=== PATIENT | male | born 1955 | race Caucasian/White ===

== ENCOUNTER 2020-01-29 18:20 | Observation (INO) ==
--- NOTE | 2020-01-29 19:05 | Emergency Department Note ---
Impression & Plan Right arm weakness, Hypomagnesemia, Hyperglycemia due to type 2 diabetes mellitus ED Provider Note Provider: Shorty Adams MD DATE OF SERVICE: 01/29/2020 CHIEF COMPLAINT: Right arm weakness HISTORY OF PRESENT ILLNESS: Patient is a 64-year-old gentleman history of A. fib and stroke presenting today stating around noon yesterday noted some issues with his right arm felt weak and is not moving quite as strong as the left. Denies any issues with his legs or speech. Denies headache. Denies trauma. Denies numbness in the upper extremities. States he did about 3 months ago have a prior stroke on the left side that was similar although that is improved. Patient states he is on Eliquis at this time given a history of atrial fibrillation. Patient eyes chest pain or fever infectious symptoms. Patient eyes any shortness of breath. Patient states he called his neurologist who is located in [place] and recommend he come in for imaging. Patient states he travels quite frequently and is just traveling through the area today. Denies visual changes. Denies speech issues again. REVIEW OF SYSTEMS: A total of 10 review of systems was obtained and negative except as stated above in the HPI. PAST MEDICAL HISTORY: As noted above and reports a history of colon cancer and kidney cancer in the past. MEDICATIONS: Reviewed the patient's medications that he is present with him that he takes at home SOCIAL HISTORY: Travels for work, has a boat in [place] which he considers his home, non-smoker PHYSICAL EXAM: GENERAL: alert and oriented in no acute distress on stretcher Head: normocephalic and atraumatic EYES: No injection, discharge or icterus. PERRL NECK: Trachea midline. Supple. ENT: Mucous membranes pink and moist. Pharynx without erythema or exudate. LUNGS: Airway patent. No retractions. Breath sounds clear with good air entry bilaterally. HEART: Regular rate and rhythm. No chest wall tenderness ABDOMEN: Soft and non-tender, without guarding or rebound. SKIN: Acyanotic, warm, dry, without rashes EXTREMITIES: Without swelling, tenderness or deformity NEUROLOGICAL: No focal deficits. No aphasia. No facial droop or slurred speech. Sensation to gross touch normal. Ambulatory. Patient does have some good bilateral hand sleep technologist strength. There is some slight very subtle slight ataxia of the right [id number]. EK bpm sinus bradycardia. No PVC. No ST segment elevation or depression. Normal QTC. No priors available. CONTINUOUS CARDIAC MONITORING: was ordered and showed a heart rate of 54 bpm in sinus bradycardia Patient's hypertension was referred to the hospitalist Patient's laboratory studies and imaging reviewed. Differential includes Infection, dehydration, metabolic abnormality, hypo/hyperglycemia, electrolyte disturbance, anemia, hypoxia, cardiac sources, intracerebral event, toxicologic, neurologic, as well as other pathologies. IMPRESSION/MEDICAL DECISION MAKING: Patient presents with neurological change management lead 24 hours ago stating his right arm seems weak. History of A. fib and stroke. States compliance home anticoagulation no trauma history. Patient is well-appearing. May be some subtle right arm weakness and ataxia appreciated. Imaging of the head was completed well CT of the head and neck. Basic labs were obtained. Patient outside the window for TPA and is anticoagulated contraindicated. On exam again he has very subtle symptoms at this point as well have a lower suspicion for LVO. Doubt this is acutely infectious. Laboratory studies with no sign of leukocytosis or anemia. Glucose is significant elevated in the 340s here. Patient does have a history of diabetes and is on metformin. I do so to qu estion his glycemic control given the significant hyperglycemia noted here. No significant electrolyte abnormality or signs of renal dysfunction beyond some mild hypomagnesemia. Troponin is undetectable I doubt this is cardiac in nature. Stable sinus bradycardia without evidence of atrial fibrillation. Denies any significant neck issue I doubt this was related to cervical spine issue. CT imaging likely without evidence of any cranial bleed or abnormality. CTA of the head and neck was completed without evidence of LVO/dissection per radiology. At this point cannot exclude an occult CVA however outside the interventional window or TPA range at this point. Discussed with the patient further evaluation with MRI and observation here in the hospital. Patient does not wish for this. Patient states blood sugars uncontrolled due to poor eating habits this morning. Discussed with patient reassuring findings this point but clearly a small stroke. Recommend observation overnight & he is in agreement with this. Given some magnesium supplementation here will defer further glycemic control to the inpatient team. Discussed with hospitalist. DIAGNOSIS: Right arm weakness, hypomagnesemia, hyperglycemia DISPOSITION: Hospitalist will evaluate Patient was agreeable with this plan. Past Med/Surg History Social History Smoking Status: Never smoker Feels Safe at Home: Yes Results & Data (ED) Vital Signs Vital Signs - 24 hr 01/29/20 18:43 01/29/20 19:14 Temperature 36.8 C 36.9 C Temperature Source Oral Oral Pulse Rate 60 Pulse Rate [Right Brachial] 55 L Pulse Rhythm [Right Brachial] Regular Respiratory Rate 18 18 Respiratory Effort / Characteristics Non-Labored Spontaneous Non-Labored Respiratory Depth Normal Normal Respiratory Pattern Regular Blood Pressure 165/87 H Blood Pressure [Right Arm] 172/86 H Blood Pressure Mean 113 Blood Pressure Mean [Right Arm] 114 Blood Pressure Position Sitting Pulse Oximetry 98 97 Oxygen Delivery Method Room Air Room Air Sepsis Recent Fever Within 48 Hours No Sepsis New/Unexplained Change in Mental Status N/A Sepsis Action Taken by Nursing No Action Required Laboratory Data Result diagrams: 01/29/20 19:13 01/29/20 19:13 Lab Results 01/29/20 01/29/20 01/29/20 Range/Units 19:13 19:13 19:13 WBC 5.70 (4.8-10.8) K/uL RBC 4.68 L (4.7-6.1) M/uL Hgb 14.4 (14.0-18.0) g/dL POC Hgb (14.0-18.0) g/dl Hct 40.8 L (42-52) % POC Hct (42-52) % MCV 87.2 (80-100) fL MCH 30.8 (25-34) pg MCHC 35.3 (32-36) g/dL RDW Std Deviation 40.8 (36.4-46.3) fL RDW Coeff of Fco 12.8 (11.5-14.5) % Plt Count 176 (130-400) K/uL MPV 9.7 (7.4-10.4) fL Immature Gran % (Auto) 0.2 % Neut % (Auto) 65.2 % Lymph % (Auto) 23.9 % Hayes % (Auto) 8.6 % Eos % (Auto) 1.9 % Baso % (Auto) 0.2 % Neut # (Auto) 3.72 (1.4-6.5) K/uL Lymph # (Auto) 1.36 (1.2-3.4) K/uL Hayes # (Auto) 0.49 (0.11-0.59) K/uL Eos # (Auto) 0.11 (0-0.5) K/uL Baso # (Auto) 0.01 (0-0.2) K/uL Immature Gran # (Auto) 0.01 (0.00-0.02) K/uL PT 11.1 (9.0-12.0) Seconds INR 1.1 (0.9-1.1) APTT 24.5 (21.0-31.0) Seconds PTT Ratio 0.9 POC Sodium (135-144) mmol/L Sodium 135 L (136-145) mmol/L POC Potassium (3.3-5.0) mmol/L Potassium 4.3 (3.5-5.1) mmol/L POC Chloride (101-112) mmol/L Chloride 101 (98-107) mmol/L Carbon Dioxide 28 (21-32) mmol/L POC Total CO2 (24-31) mmol/L Anion Gap 7.0 (3-11) POC Anion Gap (16-25) mmol/L POC BUN (7-18) mg/dl BUN 23 H (7-18) mg/dl Creatinine 1.06 (0.6-1.4) mg/dl POC Creatinine (0.6-1.3) mg/dl Est Cr Clr Drug Dosing 83.0 ml/min Est GFR ( Amer) 84.9 Est GFR (Non-Af Amer) 73.3 BUN/Creatinine Ratio 21.7 H (10-20) Glucose 340 H* (70-99) mg/dl POC Glucose (70-99) mg/dl POC Glucose (other) (70-99) mg/dl Lactate (0.4-2.0) mmol/L Calcium 8.9 (8.5-10.1) mg/dl POC Ioniz Calcium Mery (1.12-1.32) mmol/l Magnesium 1.5 L (1.8-2.4) mg/dl Total Bilirubin 0.9 (0.2-1) mg/dl AST 14 L (15-37) U/L ALT 20 (12-78) U/L Alkaline Phosphatase 95 (45-117) U/L Troponin I < 0.015 (0-0.045) ng/ml Total Protein 7.3 (6.4-8.2) gm/dl Albumin 3.7 (3.4-5.0) gm/dl Globulin 3.6 (2.5-4.0) gm/dl Albumin/Globulin Ratio 1.0 (0.9-2) Beta-Hydroxybutyric Acd (0.2-2.81) mg/dl 01/29/20 01/29/20 01/29/20 Range/Units 19:13 19:13 19:20 WBC (4.8-10.8) K/uL RBC (4.7-6.1) M/uL Hgb (14.0-18.0) g/dL POC Hgb 13.9 L (14.0-18.0) g/dl Hct (42-52) % POC Hct 41 L (42-52) % MCV (80-100) fL MCH (25-34) pg MCHC (32-36) g/dL RDW Std Deviation (36.4-46.3) fL RDW Coeff of Fco (11.5-14.5) % Plt Count (130-400) K/uL MPV (7.4-10.4) fL Immature Gran % (Auto) % Neut % (Auto) % Lymph % (Auto) % Hayes % (Auto) % Eos % (Auto) % Baso % (Auto) % Neut # (Auto) (1.4-6.5) K/uL Lymph # (Auto) (1.2-3.4) K/uL Hayes # (Auto) (0.11-0.59) K/uL Eos # (Auto) (0-0.5) K/uL Baso # (Auto) (0-0.2) K/uL Immature Gran # (Auto) (0.00-0.02) K/uL PT (9.0-12.0) Seconds INR (0.9-1.1) APTT (21.0-31.0) Seconds PTT Ratio POC Sodium 135 (135-144) mmol/L Sodium (136-145) mmol/L POC Potassium 4.3 (3.3-5.0) mmol/L Potassium (3.5-5.1) mmol/L POC Chloride 97 L (101-112) mmol/L Chloride (98-107) mmol/L Carbon Dioxide (21-32) mmol/L POC Total CO2 25 (24-31) mmol/L Anion Gap (3-11) POC Anion Gap 18.0 (16-25) mmol/L POC BUN 23 H (7-18) mg/dl BUN (7-18) mg/dl Creatinine (0.6-1.4) mg/dl POC Creatinine 0.9 (0.6-1.3) mg/dl Est Cr Clr Drug Dosing ml/min Est GFR ( Amer) Est GFR (Non-Af Amer) BUN/Creatinine Ratio (10-20) Glucose (70-99) mg/dl POC Glucose 346 H* (70-99) mg/dl POC Glucose (other) 340 H (70-99) mg/dl Lactate 1.2 (0.4-2.0) mmol/L Calcium (8.5-10.1) mg/dl POC Ioniz Calcium Mery 1.13 (1.12-1.32) mmol/l Magnesium (1.8-2.4) mg/dl Total Bilirubin (0.2-1) mg/dl AST (15-37) U/L ALT (12-78) U/L Alkaline Phosphatase (45-117) U/L Troponin I (0-0.045) ng/ml Total Protein (6.4-8.2) gm/dl Albumin (3.4-5.0) gm/dl Globulin (2.5-4.0) gm/dl Albumin/Globulin Ratio (0.9-2) Beta-Hydroxybutyric Acd (0.2-2.81) mg/dl Administered Medications Magnesium Sulfate/Dextrose (Magnesium Sulfate / D5w) 1 gm in 100 mls @ 400 mls/hr IV Q15M [facility] Stop: 01/29/20 20:29 Last Admin: 01/29/20 20:19 Dose: 400 mls/hr Documented by: [id number] Discontinued Medications Ioversol (Optiray 320 125ml) 120 ml IV ONCE ONE Stop: 01/29/20 19:40 Last Admin: 01/29/20 19:39 Dose: 120 ml Documented by: [id number] Magnesium Chloride (Magnesium Chloride 64mg Delayed Rel Tab) 64 mg PO ONCE STA Stop: 01/29/20 20:12 Last Admin: 01/29/20 20:24 Dose: 64 mg Documented by: [id number] Discharge Plan Visit Data Chief Complaint: Stroke/CVA Symptoms Stated Complaint: STROKE LIKE SYMPTOMS ED Provider: Shorty Adams Discharge Problem: Right arm weakness, Hypomagnesemia, Hyperglycemia due to type 2 diabetes mellitus Forms Stand Alone Forms: [facility] Discharge Problem: Hyperglycemia due to type 2 diabetes mellitus Qualifiers: Diabetes mellitus mcc insulin use: without terminologist use Qualified Code(s): E11.65 - Type 2 diabetes mellitus with hyperglycemia
[2020-01-29 19:24] LABS: Basophils # (auto) 0.01 K/uL (0-0.2); Basophils % (auto) 0.2 %; Eosinophils # (auto) 0.11 K/uL (0-0.5); Eosinophils % (auto) 1.9 %; Hematocrit (blood only) 40.8 % (42-52); Hemoglobin 14.4 g/dL (14.0-18.0); Immature Granulocytes # (auto) 0.01 K/uL (0.00-0.02); Immature Granulocytes % (auto) 0.2 %; Lymphocytes # (auto) 1.36 K/uL (1.2-3.4); Lymphocytes % (auto) 23.9 %; Mean Corpuscular Hemoglobin 30.8 pg (25-34); Mean Corpuscular Hgb Conc 35.3 g/dL (32-36); Mean Corpuscular Volume 87.2 fL (80-100); Mean Platelet Volume 9.7 fL (7.4-10.4); Monocytes # (auto) 0.49 K/uL (0.11-0.59); Monocytes % (auto) 8.6 %; Neutrophils # (auto) 3.72 K/uL (1.4-6.5); Neutrophils % (auto) 65.2 %; Platelet Count 176 K/uL (130-400); RDW Coefficient of Variation 12.8 % (11.5-14.5); RDW Standard Deviation 40.8 fL (36.4-46.3); Red Blood Count 4.68 M/uL (4.7-6.1)
[2020-01-29 19:31] LABS: iSTAT Creatinine 0.9 mg/dl (0.6-1.3); iSTAT Hemoglobin 13.9 g/dl (14.0-18.0); iSTAT Ionized Calcium 1.13 mmol/l (1.12-1.32); iSTAT Potassium 4.3 mmol/L (3.3-5.0)
[2020-01-29 19:36] LABS: INR 1.1 (0.9-1.1); Partial Thromboplastin Ratio 0.9; Partial Thromboplastin Time 24.5 Seconds (21.0-31.0); Prothrombin Time 11.1 Seconds (9.0-12.0)
[2020-01-29] MEDS ORDERED: OPTIRAY 320 125ml IV ONE (19:39)
[2020-01-29 19:46] LABS: Alanine Aminotransferase 20 U/L (12-78); Albumin Level 3.7 gm/dl (3.4-5.0); Aspartate Aminotransferase 14 U/L (15-37); BUN Creatinine Ratio 21.7 (10-20); Blood Urea Nitrogen 23 mg/dl (7-18); Calcium 8.9 mg/dl (8.5-10.1); Carbon Dioxide 28 mmol/L (21-32); Chloride 101 mmol/L (98-107); Est GFR (African American) 84.9; Est GFR (Non-African American) 73.3; Glucose 340 mg/dl (70-99); Magnesium 1.5 mg/dl (1.8-2.4); Potassium 4.3 mmol/L (3.5-5.1); Sodium 135 mmol/L (136-145)
[2020-01-29 19:48] LABS: Alkaline Phosphatase 95 U/L (45-117); Bilirubin,Total 0.9 mg/dl (0.2-1); Globulin 3.6 gm/dl (2.5-4.0); Total Protein 7.3 gm/dl (6.4-8.2); Troponin I < 0.015 ng/ml (0-0.045)
--- NOTE | 2020-01-29 20:09 | CT Scan Report ---
HEAD CT NONCONTRAST CT DOSE: HISTORY: Right arm weakness. TECHNIQUE: Multiaxial CT images of the head were performed without the use of intravenous contrast. A utomated exposure control was utilized for this study. A dose lowering technique was utilized adheri ng to the principles of ALARA. Comparison: None. Findings: Trace fluid within the right maxillary sinus. The mastoid air cells are clear. The calvariu m and skull base are intact. The ventricles and sulci are within normal limits. There is no mass, hem atoma, midline shift, or acute infarct. A few small hypodensities within the periventricular white ma tter favor mild microvascular ischemic change. Impression: No acute intracranial abnormality. ACT 112: Negative or not required by law. Electronically signed by: Raymundo Mcdermott M.D. 01/29/2020 8:08 PM
[2020-01-29] MEDS ORDERED: MAGNESIUM CHLORIDE 64MG DELAYED REL TAB PO STA (20:11)
[2020-01-29] MEDS ORDERED: MAGNESIUM SULFATE / D5W 1 GM/100 ML BAG IV SCH (20:15)
--- NOTE | 2020-01-29 20:16 | CT Scan Report ---
HEAD & NECK CTA HISTORY: Right arm weakness. Possible stroke. Stroke evaluation TECHNIQUE: Multiaxial CT images of the head were performed following the intravenous administration o f contrast to evaluate the major cerebral vessels. Multiaxial CT images of the neck were also perform ed following the intravenous administration of contrast to evaluate the major cervical vessels. Maxim um intensity projection images were also obtained. A dose lowering technique was utilized adhering to the principles of ALARA. COMPARISON: None. FINDINGS: There is no mass, hematoma, midline shift, or acute infarct. Visualized intracranial internal carotid arteries, distal vertebral arteries, and basilar artery are widely patent. There is no significant s tenosis, occlusion, or aneurysm seen within the bilateral ACAs, MCAs, or healthcare risk control consultant. The major dural venous sinuses are patent. The aortic arch and proximal great vessels are widely patent. Moderate focal narrowing at the takeo ff of the right vertebral artery. Otherwise, the remaining bilateral vertebral arteries are widely pa tent. There is moderate calcified and noncalcified plaque within the carotid bifurcations. This resul ts in approximately 30% focal stenosis at the takeoff of the bilateral internal carotid arteries. The bilateral common carotid arteries are widely patent. Multiple thyroid nodules with the largest on th e right measuring 11 mm. There is a 5 mm nodule within the left upper lobe on image 8 of 555. This ma y represent a small bronchial lymph node. IMPRESSION: 1. No significant stenosis, occlusion, or aneurysm within the [place]. 2. Mild narrowing of approximately 30% at the proximal bilateral internal carotid arteries due to the atherosclerotic plaque. 3. Moderate focal narrowing at the takeoff of the right vertebral artery. 4. A 5 mm nodule within the left upper lobe. Please refer to the chart below for recommended follow-u p. Please refer to below summary of Fleischner criteria recommendations for follow-up of incidental CT n odules (Michelle Mancera, Guidelines for management of small pulmonary nodules detected on CT scans: A sta tement from the Fleischner Society, Radiology 237: [phone].) SOLID NODULES Solitary nodule size: <6 mm * Low risk patients: no follow-up needed * high risk patients: optional CT at 12 months Solitary nodule size: 6-8 mm * Low risk patients: follow-up at 6-12 months, then consider further follow-up at 18-24 months * high risk patients: initial follow-up CT at 6-12 months and then at 18-24 months if no change Solitary nodule size: >8 mm * either low or high risk patients - consider follow-up CT at 3 months, and/or CT-PET, and/or biopsy Multiple nodules size: <6 mm * Low risk patients: no routine follow-up * high risk patients: optional CT at 12 months Multiple nodules size: 6-8 mm * Low risk patients: follow-up at 3-6 months, then consider further follow-up at 18-24 months * high risk patients: follow-up at 3-6 months, then at 18-24 months if no change Multiple nodules size: >8 mm * Low risk patients: follow-up at 3-6 months, then consider further follow-up at 18-24 months * high risk patients: follow-up at 3-6 months, then at 18-24 months if no change Note: newly detected indeterminate nodule in persons 35 years of age or older. * Low risk patients: minimal or absent history of smoking and/or other known risk factors * high risk patients: history of smoking or of other known risk factors (e.g. first degree relative with lung cancer, or exposure to asbestos, radon, uranium) * if a nodule up to 8 mm is partly solid or is ground glass further follow-up is required after 24 m onths to exclude possible slow growing adenocarcinoma (PEDRO) SUBSOLID NODULES Solitary pure ground-glass nodule * nodule size <6 mm - no CT follow-up required * nodule size >=6 mm - follow-up CT at 6-12 months, then every 2 years until 5 years Solitary part-solid nodule * nodule size <6 mm - no CT follow-up required * nodule size >=6 mm - follow-up CT at 3-6 months. If unchanged, and solid component remains <6 mm, then annual follow-up for 5 years Multiple subsolid nodules * nodule size <6 mm - follow-up CT at 3-6 months, consider further follow-up at 2 and 4 years if sta ble * nodule size >=6 mm - follow-up CT at 3-6 months, subsequent management based on the most suspiciou s nodule(s) ACT 112: Negative or not required by law. Electronically signed by: Raymundo Mcdermott M.D. 01/29/2020 8:15 PM
--- NOTE | 2020-01-29 21:29 | History & Physical Report ---
Date of Service January 29, 2020 Assessment & Plan (1) Right arm weakness: 64-year-old male with past medical history A. fib on Eliquis, type 2 diabetes, hyperlipidemia, BPH, previous stroke presents with concerns of right arm weakness admitted for stroke rule out. CVA Head CT: No acute intracranial abnormality Head/Neck CTA: No significant stenosis, occlusion, or aneurysm within the [place]. Mild narrowing of approximately 30% at the proximal bilateral internal carotid arteries due to the atherosclerotic plaque. Moderate focal narrowing at the takeoff of the right vertebral artery MRI brain w/wo contrast pending Echo pending NIHSS every shift Medication management with atorvastatin 40 mg, starting ASA 81 mg Holding Eliquis Lipid/A1c in a.m. PT OT eval is pending. Deferring any SLC eval as patient passed bedside swallow Appreciate neurology consult A. fib Admit to telemetry Holding diltiazem 240 mg to allow for permissive HTN Holding Eliquis 5 mg twice daily as above DM [address]. [address] on SSI BPH Holding tamsulosin 0.4 mg Lung nodule A 5 mm nodule within the left upper lobe seen on CT imaging Low risk patients: no follow-up needed FEN/GI: Heart healthy diet DVT prophylaxis: Chemoprophylaxis deferred, SCDs Full code Dispo: Telemetry History of Present Illness Chief Complaint: Right arm weakness Primary Care Provider: PT DECLINED 64-year-old male with past medical history A. fib on Eliquis, type 2 diabetes, hyperlipidemia, BPH, previous stroke presents with concerns of right arm weakness that started yesterday afternoon. Patient is originally from [place] and travels throughout the country for work. Patient notes similar occurrence about 3 months ago, but on the left upper extremity. Patient was in [place] for work with his previous incident and was hospitalized and eventually discharged with resolution of symptoms. Patient describes the weakness as " sometimes my arm just drops without me realizing." Patient notes no alleviating or exacerbating factors. No lower extremity weakness. Patient denies any fevers, chills, sweats, chest pain, shortness of breath, palpitations, edema, syncope or near syncope, impaired speech/swallowing, fall, numbness or tingling, visual changes, headache, trauma, known sick contacts or recent travel anywhere. Patient with no other acute concerns or complaints. Pertinent labs: Sodium 135, glucose 340, magnesium 1.5, otherwise largely unremarkable CBC CMP EKG: Sinus bradycardia. No PVC. No ST segment elevation or depression. Normal QTC. No priors available for comparison. Head CT: No acute intracranial abnormality Head/Neck CTA: No significant stenosis, occlusion, or aneurysm within the [place]. Mild narrowing of approximately 30% at the proximal bilateral internal carotid arteries due to the atherosclerotic plaque. Moderate focal narrowing at the takeoff of the right vertebral artery ER course: P.o. magnesium chloride 64 mg, IV mag sulfate 1 g Social history: Patient denies any tobacco or illicit drug use. Social alcohol use Allergies Allergy/AdvReac Type Severity Reaction Status Date / Time No Known Allergies Allergy Verified 01/29/20 20:44 Home Medications Home Medications Medication Instructions Recorded Confirmed Type apixaban [Eliquis] 5 mg PO BID 01/29/20 01/29/20 History atorvastatin 40 mg PO DAILY 01/29/20 01/29/20 History diltiazem HCl 240 mg PO QAM 01/29/20 01/29/20 History metformin 1,000 mg PO BID 01/29/20 01/29/20 History tamsulosin 0.4 mg PO QAM 01/29/20 01/29/20 History Past Med/Surg History Social History Smoking Status: Never smoker Hx Alcohol Use: No Hx Substance Use: No Preferred Language: Serbian Communication Ability: Effective Turn Out Worker Required: No Beliefs That Will Affect Care: None Current Living Situation: Alone Feels Safe at Home: Yes Assistive Devices: None Review of Systems Review of Systems: All systems reviewed & are unremarkable except as noted in HPI & below Physical Exam Constitutional: WD/WN, vitals as above Eyes: PERRL, conjunctivae normal, anicteric sclerae ENMT: external ear and nose normal, oropharynx normal Respiratory: normal respiratory effort, lungs clear to auscultation Cardiovascular: RRR, no murmur, no edema Gastrointestinal (Abdomen): normal bowel sounds, soft, nontender, no hepatosplenomegaly Skin: no rashes, warm and dry Neurologic: CN's II-XI intact bilaterally; no focal motor deficits Speech / Cognition: normal speech Psychiatric: A+Ox3, euthymic affect Results & Data Results & Data ([facility]) Vital Signs (Past 12 Hours) Vital Signs Temp Pulse Pulse Resp BP BP Pulse Ox 01/29/20 19:14 36.9 C 55 L 18 172/86 H 97 01/29/20 18:43 36.8 C 60 18 165/87 H 98 Laboratory Results Laboratory Results - last 24 hr 01/29/20 01/29/20 01/29/20 19:13 19:13 19:13 WBC 5.70 RBC 4.68 L Hgb 14.4 POC Hgb Hct 40.8 L POC Hct MCV 87.2 MCH 30.8 MCHC 35.3 RDW Std Deviation 40.8 RDW Coeff of Fco 12.8 Plt Count 176 MPV 9.7 Immature Gran % (Auto) 0.2 Neut % (Auto) 65.2 Lymph % (Auto) 23.9 [place] % (Auto) 8.6 Eos % (Auto) 1.9 Baso % (Auto) 0.2 Neut # (Auto) 3.72 Lymph # (Auto) 1.36 [place] # (Auto) 0.49 Eos # (Auto) 0.11 Baso # (Auto) 0.01 Immature Gran # (Auto) 0.01 PT 11.1 INR 1.1 APTT 24.5 PTT Ratio 0.9 POC Sodium Sodium POC Potassium Potassium POC Chloride Chloride Carbon Dioxide POC Total CO2 Anion Gap POC Anion Gap POC BUN BUN Creatinine POC Creatinine Est Cr Clr Drug Dosing Est GFR ( Amer) Est GFR (Non-Af Amer) BUN/Creatinine Ratio Glucose POC Glucose POC Glucose (other) Lactate Calcium POC Ioniz Calcium Mery Magnesium Total Bilirubin AST ALT Alkaline Phosphatase Troponin I Total Protein Albumin Globulin Albumin/Globulin Ratio Beta-Hydroxybutyric Acd Blood Type A Positive Antibody Screen NEGATIVE 01/29/20 01/29/20 01/29/20 19:13 19:13 19:13 WBC RBC Hgb POC Hgb Hct POC Hct MCV MCH MCHC RDW Std Deviation RDW Coeff of Fco Plt Count MPV Immature Gran % (Auto) Neut % (Auto) Lymph % (Auto) [place] % (Auto) Eos % (Auto) Baso % (Auto) Neut # (Auto) Lymph # (Auto) [place] # (Auto) Eos # (Auto) Baso # (Auto) Immature Gran # (Auto) PT INR APTT PTT Ratio POC Sodium Sodium 135 L POC Potassium Potassium 4.3 POC Chloride Chloride 101 Carbon Dioxide 28 POC Total CO2 Anion Gap 7.0 POC Anion Gap POC BUN BUN 23 H Creatinine 1.06 POC Creatinine Est Cr Clr Drug Dosing 83.0 Est GFR ( Amer) 84.9 Est GFR (Non-Af Amer) 73.3 BUN/Creatinine Ratio 21.7 H Glucose 340 H* POC Glucose 346 H* POC Glucose (other) Lactate 1.2 Calcium 8.9 POC Ioniz Calcium Mery Magnesium 1.5 L Total Bilirubin 0.9 AST 14 L ALT 20 Alkaline Phosphatase 95 Troponin I < 0.015 Total Protein 7.3 Albumin 3.7 Globulin 3.6 Albumin/Globulin Ratio 1.0 Beta-Hydroxybutyric Acd Blood Type Antibody Screen 01/29/20 19:20 WBC RBC Hgb POC Hgb 13.9 L Hct POC Hct 41 L MCV MCH MCHC RDW Std Deviation RDW Coeff of Fco Plt Count MPV Immature Gran % (Auto) Neut % (Auto) Lymph % (Auto) [place] % (Auto) Eos % (Auto) Baso % (Auto) Neut # (Auto) Lymph # (Auto) [place] # (Auto) Eos # (Auto) Baso # (Auto) Immature Gran # (Auto) PT INR APTT PTT Ratio POC Sodium 135 Sodium POC Potassium 4.3 Potassium POC Chloride 97 L Chloride Carbon Dioxide POC Total CO2 25 Anion Gap POC Anion Gap 18.0 POC BUN 23 H BUN Creatinine POC Creatinine 0.9 Est Cr Clr Drug Dosing Est GFR ( Amer) Est GFR (Non-Af Amer) BUN/Creatinine Ratio Glucose POC Glucose POC Glucose (other) 340 H Lactate Calcium POC Ioniz Calcium Mery 1.13 Magnesium Total Bilirubin AST ALT Alkaline Phosphatase Troponin I Total Protein Albumin Globulin Albumin/Globulin Ratio Beta-Hydroxybutyric Acd Blood Type Antibody Screen Code Status & VTE Plan Code Status Full Supervising Physician Co-Signing Physician Notes Patient seen and examined, chart reviewed, case discussed with Dr. Elliott and I agree with his assessment and plan as documented above. Briefly, patient is a 64yo C male presenting with RUE weakness. Patient recently diagnosed with a stroke that involved LUE weakness - workup revealed new AF and a PFO per patient On exam patient is afebrile, mildly hypertensive, NAD Skin - no rash HEENT - NC/AT, PERRL, EOMI, MMM, Neck supple, no JVD, no carotid bruits appreciated Heart - +S1/S2, regular, no m/r/g Lungs - CTA Abd - +BS, soft, NT/ND Ext - No edema Neuro - CN grossly intact, RUE 4+/5 strength Labs and images reviewed Assessment/Plan - 64yo C male presenting with RUE weakness and loss of coordination, concern for CVA. Patient recently diagnosed with AF, PFO and stroke - he is transient and travels frequently for work -recently seen in hospitals in [place], [place] and [place]. Patient is on Eliquis, Atorvastatin. He reports completing a short course of Plavix after his stroke (?21d total per GDMT) -Check MRI -Check echo -Obtain records -Neuro consultation appreciated -Remainder of plan as above Resident Activity Tracking Resident Involvement: Resident Care Provided Care Provided: [facility]
[2020-01-29] MEDS ORDERED: ONDANSETRON INJ 2 MG/ML 2 ML VIAL IV PRN (23:24)
[2020-01-29] MEDS ORDERED: ALUMINUM/MAGNESIUM SUSP 30 ML UDC PO PRN (23:24)
[2020-01-29] MEDS ORDERED: ACETAMINOPHEN 325 MG TAB PO PRN (23:24)
[2020-01-29] MEDS ORDERED: GLUCAGON FOR INJ 1 MG VIAL SQ PRN (23:24)
[2020-01-29] MEDS ORDERED: CARBOHYDRATES FOR HYPOGLYCEMIA PO PRN (23:24)
[2020-01-29] MEDS ORDERED: GLUCOSE 40% GEL 15 GM TUBE PO PRN (23:24)
[2020-01-29] MEDS ORDERED: GLUCOSE 10 TABS/TUBE PO PRN (23:24)
[2020-01-29] MEDS ORDERED: DEXTROSE 50% 50 ML SYRINGE IV PRN (23:24)
--- NOTE | 2020-01-29 23:39 | Billing Data ---
Date of Service January 29, 2020 Coding Level of Care Code 88773 OBS Care - Level 3
[2020-01-30] MEDS ORDERED: GADOBUTROL 65ML VIAL IV ONE (01:19)
[2020-01-30] MEDS: INSULIN GLARGINE SOLOSTAR 100 UNITS/ML 3 ML PEN SC SCH ×2 (01:28→08:06)
[2020-01-30] MEDS: INSULIN ASPART 100 UNITS/ML 3 ML PEN SC SCH ×3 (01:28→12:07)
[2020-01-30 05:21] LABS: Appearance Urine Clear (Clear); Bilirubin Urine Negative (Negative); Blood Urine Negative (Negative); Color Urine Yellow; Glucose Urine UA 3+ (Negative); Ketones Urine Negative (Negative); Leukocyte Esterase Urine Negative (Negative); Nitrite Urine Negative (Negative); Protein Urine Negative (Negative); Urobilinogen Urine Negative (Negative); pH Urine 5.5 (4.5-7.5)
--- NOTE | 2020-01-30 07:04 | Magnetic Resonance Report ---
MRI OF THE BRAIN WITHOUT AND WITH IV CONTRAST CLINICAL HISTORY: Suspected stroke. Loss of control of right arm and hand. COMPARISON STUDY: Noncontrast head CT dated 01/29/2020 TECHNIQUE: MRI of the brain was performed from the vertex to the skull base utilizing various T1 and T2 weighted sequences. Following the IV administration of 10 mL of Gadavist contrast, additional enha nced images were obtained. FINDINGS: Sagittal T1, axial diffusion, axial T2, and pre and post gadolinium axial and coronal T1-weighted amaury ges were acquired. No intra or extra-axial mass lesions are visualized. There are small foci of restricted water diffusion within the left posterior frontal vertex. The find ings are consistent with small acute/subacute infarcts. Foci of increased diffusion signal within the deep right hemispheric white matter likely represent T2 shine through There is no evidence of ventricular dilatation. Proton density T2-weighted and FLAIR images reveal scattered foci of increased T2 signal within the w rob matter, likely on a small vessel basis. There are no abnormal flow voids. There is no evidence of pathologic enhancement. IMPRESSION: 1. Small foci of reticular water diffusion within the left posterior frontal vertex, consistent with small acute/subacute infarcts. 2. Old deep white matter infarcts within the right posterior frontal vertex. 3. No evidence of intracranial mass. No pathologically enhancing lesions. 4. Scattered foci of increased T2 signal within the white matter likely on a small vessel basis ACT 112: Negative or not required by law. Electronically signed by: Casey Fernandez M.D. 01/30/2020 7:02 AM
[2020-01-30 07:42] LABS: Basophils # (auto) 0.02 K/uL (0-0.2); Basophils % (auto) 0.4 %; Eosinophils # (auto) 0.11 K/uL (0-0.5); Hematocrit (blood only) 37.5 % (42-52); Hemoglobin 13.5 g/dL (14.0-18.0); Immature Granulocytes # (auto) 0.01 K/uL (0.00-0.02); Immature Granulocytes % (auto) 0.2 %; Lymphocytes # (auto) 1.36 K/uL (1.2-3.4); Lymphocytes % (auto) 24.1 %; Mean Corpuscular Hemoglobin 31.1 pg (25-34); Mean Corpuscular Volume 86.4 fL (80-100); Monocytes # (auto) 0.51 K/uL (0.11-0.59); Neutrophils # (auto) 3.63 K/uL (1.4-6.5); Neutrophils % (auto) 64.3 %; Platelet Count 153 K/uL (130-400); RDW Coefficient of Variation 12.6 % (11.5-14.5); RDW Standard Deviation 40.4 fL (36.4-46.3); Red Blood Count 4.34 M/uL (4.7-6.1); White Blood Count 5.64 K/uL (4.8-10.8)
[2020-01-30 07:48] LABS: Estimated Average Glucose 240 mg/dl
[2020-01-30] MEDS ORDERED: ATORVASTATIN 40 MG TAB PO SCH (09:00)
[2020-01-30] MEDS ORDERED: APIXABAN 5 MG TABLET PO SCH (09:00)
[2020-01-30] MEDS ORDERED: ASPIRIN 81 MG ECTAB PO SCH (09:00)
[2020-01-30 09:02] LABS: BUN Creatinine Ratio 21.3 (10-20); Calcium 8.2 mg/dl (8.5-10.1); Creatinine Clr Calc Pharmacy 117.4 ml/min; Est GFR (African American) 111.6; Est GFR (Non-African American) 96.3; Potassium 3.8 mmol/L (3.5-5.1)
--- NOTE | 2020-01-30 09:59 | Neurology Consultation ---
Date of Consultation January 30, 2020 Assessment & Plan (1) Acute cardioembolic stroke: Acute cardioembolic stroke to the posterior left frontal lobe resulting in very mild residual right upper extremity weakness/dysmetria and without other associated neurologic deficits. This patient's stroke occurs in the context of a recent diagnosis of atrial fibrillation for which he has been taking Eliquis. Patient also relays a history of a recent diagnosis of PFO. He follows with a neurologist and pulp roller in [place]. Additional stroke risk factors for this patient include dyslipidemia and poorly controlled diabetes mellitus. He also has a history of a relatively recent right hemispheric stroke, without residual neurological deficits. The mild bilateral atherosclerotic stenosis of the proximal internal carotid arteries and moderate narrowing at the origin of the right vertebral artery are not likely clinically significant. Patient should continue with Eliquis. I agree with the addition of daily low- dose aspirin to his medication regimen. Continue with atorvastatin as well. He is probably an appropriate candidate for PFO closure as his current embolic stroke occurred while on Eliquis, with reported good compliance. He may follow- up with his pulp roller in [place] for this issue as he plans to return home later this week. Patient's diabetes mellitus will need improved control going forward. Continue to monitor blood pressure, short-term systolic blood pressure goal 140 to 160 mmHg. Please contact me if I may be of further assistance. History of Present Illness Reason for Consultation: Stroke Requesting Physician: Tutu Elliott DO Attending Physician: Brit Bobo DO History of Present Illness The patient is a 64-year-old right-handed male with a chief complaint of right arm weakness that began acutely 2 mornings ago. He presented to our emergency department greater than 24 hours after symptom onset. He describes the weakness as mild and occurring without associated weakness of the right side of the face or leg. The weakness has modestly improved although he continues to have some difficulty with gross movement of the right upper limb. He did not experience any associated difficulty with speech, vision, or sensation. History notable for a recent diagnosis of atrial fibrillation and small right hemispheric stroke affecting the left upper limb, with full recovery, occurring within the past few months. Patient has been taking Eliquis. He follows with a neurologist and pulp roller in [place]. His occupation requires him to travel quite often. Past medical history also notable for diabetes mellitus. Patient also indicates that he was diagnosed with a PFO recently. He reports compliance with his Eliquis and other medications including atorvastatin, metformin, and diltiazem. He has undergone thorough neuro imaging in the context of his current hospitalization including CT of the head, CT angiography of the head and neck, and brain MRI. His imaging is described in further detail below although he does have evidence of 2 small acute infarcts within the left posterior frontal lobe, at the vertex. There are a few old deep white matter infarcts within the right posterior frontal lobe as well. No significant stenosis on CT angiography identified. No atrial fibrillation on recent ECG. Patient's blood pressure has been modestly elevated. Family history noncontributory Allergies Allergy/AdvReac Type Severity Reaction Status Date / Time No Known Allergies Allergy Verified 01/29/20 20:44 Home Medications Home Medications Medication Instructions Recorded Confirmed Type apixaban [Eliquis] 5 mg PO BID 01/29/20 01/29/20 History atorvastatin 40 mg PO DAILY 01/29/20 01/29/20 History diltiazem HCl 240 mg PO QAM 01/29/20 01/29/20 History metformin 1,000 mg PO BID 01/29/20 01/29/20 History tamsulosin 0.4 mg PO QAM 01/29/20 01/29/20 History Patient History Social History Smoking Status: Never smoker Hx Alcohol Use: No Hx Substance Use: No Preferred Language: Albanian Communication Ability: Effective Chiropractic Physician Required: No Beliefs That Will Affect Care: None Current Living Situation: Alone Feels Safe at Home: Yes Assistive Devices: None Review of Systems Constitutional: no fever and no chills Eyes: no blind spots and no diplopia Ear, Nose, Mouth, Throat: no ear pain and no hearing loss Respiratory: no cough and no dyspnea Cardiovascular: no chest pain and no palpitations Gastrointestinal: no nausea and no vomiting Genitourinary: no dysuria Musculoskeletal: no myalgia Integumentary: no rash and no lesions Neurologic: as per Subjective / HPI, + localized weakness and + lack of coordination; no gait abnormality, no loss of sensation, no tremor(s), no seizure-like activity, no syncope, no headache(s), no confusion and no memory loss Psychiatric: no depression and no anxiety Hematologic / Lymphatic: no easy bleeding and no easy bruising Exam (Neuro) Constitutional: well developed and well nourished; no acute distress Eyes: normal visual [place] by confrontation, PERRL, normal accommodation and EOM intact bilaterally; no fundoscopic abnormality, no nystagmus and no papilledema Cardiovascular: Vessels: normal carotid upstroke; no carotid bruit Neurologic: Oriented to:: Person, Place and Time Memory: Short Term Intact and Remote Intact Attention: Span Intact and Concentration Intact L anguage: Naming Objects and Repeating Phrases Speech Fluency: negative Dysarthria Speech Aphasia: negative Aphasia Fund of Knowledge: Current Events, Past History and Vocabulary Cranial Nerves: Normal II (Visual [place] full to confrontation, visual acuity normal), III, IV, (Pupils equal round reactive to light and accommodation, eye movements normal), V (Facial sensation intact), VII (There is no facial droop or weakness), VIII (Hearing intact), IX, X (Palate elevates to midline), XI (Shoulder shrug intact) and XII (Tongue protrudes to midline) Motor Strength: Normal Lower Extremities and Normal Upper Extremities; negative Pronator Drift Motor Tone: Normal Lower Extremities and Normal Upper Extremities Muscle Bulk/Involuntary Movements: No Involuntary Movements; negative Muscle Atrophy Sensation: Light Touch Intact and Vibration Intact (Decreased vibratory sensation at the toes bilaterally); negative Pain/Temperature Intact and Proprioception Intact (Decreased proprioceptive sensation at the toes bilaterally) Coordination: Normal and Finger-Nose Abnormal Laterality: Right; negative Limited Balance, Dysdiadochokinesia and Heel-Hubbard Abnormal Deep Tendon Reflexes: Rt Triceps: 1+, Lt Triceps: 1+, Rt Biceps: 1+, Lt Biceps: 1+, Rt Brachioradialis: 1+, Lt Brachioradialis: 1+, Rt Patellar: 1+, Lt Patellar: 1+, Rt Ankle: 1+ and Lt Ankle: 1+ Special Tests: negative Babinski Present Gait: Normal Station and Gait Results & Data ([facility]) Vital Signs (Past 12 Hours) Vital Signs Temp Pulse Pulse Pulse Resp BP BP 01/30/20 07:30 36.5 C 57 L 18 167/86 H 01/30/20 07:00 52 L 01/30/20 04:50 36.6 C 53 L 16 161/82 H 01/29/20 23:32 54 L 01/29/20 23:25 36.5 C 54 L 18 183/75 H 01/29/20 23:09 143/79 H 01/29/20 23:00 BP Pulse Ox 01/30/20 07:30 96 01/30/20 07:00 01/30/20 04:50 96 01/29/20 23:32 01/29/20 23:25 96 01/29/20 23:09 01/29/20 23:00 143/79 H Laboratory Results WBC 5.64, hemoglobin 13.5, hematocrit 37.5, platelet count 153, sodium 139, potassium 3.8, BUN 16, creatinine 0.75, glucose 217, hemoglobin A1c 10.0, calcium 8.2, magnesium 1.5, triglycerides 139, cholesterol 109, LDL 47, VLDL 28, HDL [address] of the head negative for hemorrhage or acute process. There is evidence of mild microvascular ischemic change. CTA of the head and neck reveals mild narrowing of approximately 30% of the proximal bilateral internal carotid arteries due to atherosclerotic plaque and moderate focal narrowing of the takeoff of the right vertebral artery. MRI of the brain reveals a small acute infarct within the left posterior frontal vertex. There are old deep white matter infarcts within the right posterior frontal lobe as well. I reviewed the images as well as the radiologist's interpretation of these test. Electrocardiogram reveals sinus bradycardia, 58 bpm Coding Level of Care Code 78799 Inpt Consult Level 5 Diagnoses Acute cardioembolic stroke I63.9
--- NOTE | 2020-01-30 13:32 | Discharge Summary ---
Date of Service January 30, 2020 Admission HPI Per Admitting Provider 64-year-old male with past medical history A. fib on Eliquis, type 2 diabetes, hyperlipidemia, BPH, previous stroke presents with concerns of right arm weakness that started yesterday afternoon. Patient is originally from [place] and travels throughout the country for work. Patient notes similar occurrence about 3 months ago, but on the left upper extremity. Patient was in [place] for work with his previous incident and was hospitalized and eventually discharged with resolution of symptoms. Patient describes the weakness as " sometimes my arm just drops without me realizing." Patient notes no alleviating or exacerbating factors. No lower extremity weakness. Patient denies any fevers, chills, sweats, chest pain, shortness of breath, palpitations, edema, syncope or near syncope, impaired speech/swallowing, fall, numbness or tingling, visual changes, headache, trauma, known sick contacts or recent travel anywhere. Patient with no other acute concerns or complaints. Pertinent labs: Sodium 135, glucose 340, magnesium 1.5, otherwise largely unremarkable CBC CMP EKG: Sinus bradycardia. No PVC. No ST segment elevation or depression. Normal QTC. No priors available for comparison. Head CT: No acute intracranial abnormality Head/Neck CTA: No significant stenosis, occlusion, or aneurysm within the [place]. Mild narrowing of approximately 30% at the proximal bilateral internal carotid arteries due to the atherosclerotic plaque. Moderate focal narrowing at the takeoff of the right vertebral artery ER course: P.o. magnesium chloride 64 mg, IV mag sulfate 1 g Social history: Patient denies any tobacco or illicit drug use. Social alcohol use Principal Diagnosis Pt feels he is doing much better. No further weakness in his R UE, but he does note that his ability to write is still "messed up". He can hold a pen, but he feels his writing is not his usual. No issues with gross movement like getting dressed or eating. Pt denies fever, SOB, chest pain, abd pain, n/v/c/d, LE pain or swelling. Pt is very concerned to leave due to work and flight obligations. Discharge Exam Constitutional WD/WN, vitals as above Eyes normal visual ordonez by confrontation and + anicteric sclerae Neck normal visual inspection and trachea midline Respiratory normal respiratory effort, lungs clear to auscultation Cardiovascular Rate/Rhythm: regular rate and regular rhythm Gastrointestinal (Abdomen) Inspection/Auscultation: abdomen not distended Percussion/Palpation: abdomen soft; abdomen nontender Musculoskeletal Head/Neck/Chest: normocephalic and head atraumatic Skin no rashes, warm and dry Neurologic awake; not confused Speech / Cognition: normal speech UE strength 5/5 b/l, able to control use of b/l UE Psychiatric A+Ox3, euthymic affect Discharge Data Allergies Allergy/AdvReac Type Severity Reaction Status Date / Time No Known Allergies Allergy Verified 01/29/20 20:44 Consultations 01/29/20 20:28 ED Decision to Admit Stat 01/29/20 23:24 Consult Neurology Routine 01/30/20 13:26 Consult Health Information Management Routine Ordered Studies 01/29/20 18:56 CT angio head w con Stat CT angio neck with con Stat CT head/brain wo con Stat 01/30/20 00:00 MR brain wo/w con Urgent Hospital Course (1) Right arm weakness: 64-year-old male with past medical history A. fib on Eliquis, type 2 diabetes, hyperlipidemia, BPH, previous stroke presents with concerns of right arm weakness admitted for stroke rule out. CVA Head CT: No acute intracranial abnormality Head/Neck CTA: No significant stenosis, occlusion, or aneurysm within the [place]. Mild narrowing of approximately 30% at the proximal bilateral internal carotid arteries due to the atherosclerotic plaque. Moderate focal narrowing at the takeoff of the right vertebral artery MRI brain w/wo contrast noted for small L posterior frontal acute/subacute infarction Formal ECHO results pending Medication management with atorvastatin 40 mg Resume Eliquis Lipid panel WNL with LDL 47 and HDL 36 A1c 10.0 PT OT evals were WNL. Deferring any SLC eval as patient passed bedside swallow Neurology recs as noted Recommends pt revisit discussion with primary cardiology team regarding PFO closure in the setting of second CVA Pt will f/u when he returns to [place] starting ASA 81 mg A. fib Admit to telemetry Resume diltiazem 240 mg Resume Eliquis 5 mg twice daily as above DM 2 Holding metformin for 48 hrs (01/30 6pm) A1c 10.0, pt states this is improved from his last, which was over 11 Pt states he has been able to lower his A1c to <7 in the past with dietary changes Advised f/u upon return to [place] BPH Holding tamsulosin 0.4 mg Lung nodule A 5 mm nodule within the left upper lobe seen on CT imaging Pt reports h/o colon and kidney cancer, "cancer free" since 2011 Pt to f/u with his oncologist in [place] Total Time Total Time Spent Total Time Spent (In Minutes): >30 Total Time Includes: Examination of the Patient, Discharge Planning, Medication Reconciliation, Communication With Other Providers and Other Discharge Plan Discharge Items Patient Disposition: Home - Self-Care Reason For Visit: CVA Discharge Diagnosis: CVA Activity: Resume your previous activity Non-emergency contact: Primary Care Provider, [facility] and Oncologist Call non-emergency contact if: you have any medication questions and your symptoms worsen Follow-up/Referrals: PT,DECLINED [Primary Care Provider] - Diet: Carb Consistent or DM2 Addtl Attending Provider Instructions: You should follow up with your cardiology, neurologist, oncologist, and primary care once you are back in [place]. You should hold your metformin until [address] scan, which will be tomorrow around 6pm. Pending Studies at Discharge: Yes Studies:: Formal ECHO results Stand-Alone Forms: My [facility] [employer], Smoking Cessation Medications and DC Order Prescriptions: New aspirin 81 mg Tablet,Delayed Release (Dr/Ec) 81 mg PO QAM Qty: 30 RF: 0 Continued atorvastatin 40 mg Tablet 40 mg PO DAILY RF: 0 diltiazem HCl 240 mg capsule,extended release 24 hr 240 mg PO QAM RF: 0 tamsulosin 0.4 mg capsule 0.4 mg PO QAM RF: 0 metformin 500 mg Tablet Extended Release 24hr 1,000 mg PO BID RF: 0 Eliquis 5 mg tablet 5 mg PO BID RF: 0 Discharge Orders: Discharge Order (Routine); Ordered 01/30/20 Ordered By: Brit Bobo Admission Data Admit Date/Time: 01/29/20 22:18 Attending Provider: Brit Bobo Admit Provider: Tutu Elliott Primary Care Provider: PT,DECLINED Other Providers: Alisson Moreno ; Derrick Oliver Coding Level of Care Code D/C Day Management >30 mins Diagnoses Right arm weakness R29.898
--- NOTE | 2020-01-30 13:52 | XCELERA ---
[id number] [id number]
--- NOTE | 2020-01-31 12:22 | Electrocardiogram Report ---
Test Reason : Blood Pressure : / mmHG Vent. Rate : 058 BPM Atrial Rate : 058 BPM P-R Int : 188 ms QRS Dur : 110 ms QT Int : 442 ms P-R-T Axes : 030 -26 -07 degrees QTc Int : 433 ms Sinus bradycardia Septal infarct , age undetermined Abnormal ECG No previous ECGs available Confirmed by René Farris ([id number]) on 01/31/2020 12:22:23 PM Referred By: REFERRED SELF Confirmed By:René Farris
== END 2020-01-30 14:01 | disposition home or self-care (01) ==
LOC: 2S 18:20 → ED 18:20 → SUATTDRO 22:18 → 2S 23:09